=== PATIENT | female | born 1995 | race Caucasian/White ===

== ENCOUNTER → 2018-07-02 | Outpatient (CLI) | payer OTHER ==
[2018-07-02 06:53] LABS: Prothrombin Time 10.5 sec (9.0-12.0)
[2018-07-02 06:56] LABS: Anion Gap 10 mmol/L; Blood Urea Nitrogen 15 mg/dL (7-17); Calcium 9.9 mg/dL (8.4-10.2); Carbon Dioxide 28 mmol/L (22-30); Chloride 104 mmol/L (98-107); Glucose 121 mg/dL (74-99); Potassium 4.2 mmol/L (3.5-5.1); Sodium 142 mmol/L (137-145)
[2018-07-02 07:00] LABS: HCT 42.9 % (34.0-46.0); HGB 14.1 gm/dL (11.4-16.0); MCHC 32.9 g/dL (31.0-37.0); MCV 94.4 fL (80.0-100.0); Mean Platelet Volume 7.1; Platelet Count 318 k/uL (150-450); RBC 4.54 m/uL (3.80-5.40); RDW 11.8 % (11.5-15.5); WBC 7.4 k/uL (3.8-10.6)
== END ==
LOC: LABWHC1 06:35
PROVIDERS: ATTEND Internal Medicine
DX: I47.1 Supraventricular tachycardia (principal)
CPT/HCPCS: 36415; 80048; 85027; 85610

== ENCOUNTER 2023-02-23 18:48 | Emergency (ER) | payer BC, OTHER ==
[2023-02-23 19:06] VITALS: RESP 18; TEMP 98.4
--- NOTE | 2023-02-23 19:17 | ED ---
General Adult HPI - General Chief complaint: Extremity Injury, Lower Stated complaint: left ankle injury Time Seen by Provider: 02/23/23 18:55 Source: patient, RN notes reviewed Mode of arrival: wheelchair Limitations: no limitations - History of Present Illness Initial comments: 27-year-old male presents to the emergency department with chief complaint of left ankle injury. She states that this occurred around 6 PM today. She states that she was standing between 2 trailers when she fell causing her ankle to roll. She states that she feels that it was an inversion injury. She denies any numbness, tingling. She states that she has not attempted to bear weight on it since the injury. - Related Data Allergies Allergy/AdvReac Type Severity Reaction Status Date / Time No Known Allergies Allergy Verified 11/22/19 19:01 Review of Systems ROS Statement: Those systems with pertinent positive or pertinent negative responses have been documented in the HPI. ROS Other: All systems not noted in ROS Statement are negative. Past Medical History Additional Past Medical History / Comment(s): atrial tachycardia, episodic SVT History of Any Multi-Drug Resistant Organisms: None Reported Past Surgical History: Orthopedic Surgery Additional Past Surgical History / Comment(s): right knee surgery Past Psychological History: No Psychological Hx Reported Smoking Status: Never smoker Past Alcohol Use History: None Reported Past Drug Use History: None Reported General Exam Limitations: no limitations General appearance: alert, in no apparent distress Head exam: Present: atraumatic, normocephalic, normal inspection Eye exam: Present: normal appearance, PERRL, EOMI. Absent: scleral icterus, conjunctival injection, periorbital swelling ENT exam: Present: normal exam, mucous membranes moist Respiratory exam: Present: normal lung sounds bilaterally. Absent: respiratory distress, wheezes, rales, rhonchi, stridor Cardiovascular Exam: Present: regular rate, normal rhythm, normal heart sounds. Absent: systolic murmur, diastolic murmur, rubs, gallop, clicks Extremities exam: Present: tenderness (Left lateral ankle swelling and tenderness to palpation), normal capillary refill. Absent: full ROM (Decreased dorsiflexion of the left ankle) Back exam: Present: normal inspection Neurological exam: Present: alert, oriented X3 Psychiatric exam: Present: normal affect, normal mood Skin exam: Present: warm, dry, intact, normal color. Absent: rash Course Vital Signs 02/23/23 02/23/23 18:49 22:58 Temperature 98.4 F Pulse Rate 103 H 78 Respiratory 18 18 Rate Blood Pressure 133/87 137/80 O2 Sat by Pulse 98 97 Oximetry Medical Decision Making - Medical Decision Making Was pt. sent in by a medical professional or institution (, [facility], MANAGER CLINICAL RESEARCH, urgent care, hospital, or long term...) When possible be specific @ -No Did you speak to anyone other than the patient for history (EMS, parent, family, police, friend...)? What history was obtained from this source @ -No Did you review nursing and triage notes (agree or disagree)? Why? @ -I reviewed and agree with nursing and triage notes Were old charts reviewed (outside hosp., previous admission, EMS record, old EKG, old radiological studies, urgent care reports/EKG's, long term records)? Report findings @ -No old charts were reviewed Differential Diagnosis (chest pain, altered mental status, abdominal pain women, abdominal pain men, vaginal bleeding, weakness, fever, dyspnea, syncope, headache, dizziness, GI bleed, back pain, seizure, CVA, palpatations, mental health, musculoskeletal)? @ -Differential Musculoskeletal Muscular strain, contusion, ligament sprain, fracture, arthritis, septic arthritis, bursitis, cellulitis, muscle spasm, nerve compression, DVT, arterial occlusion, herpes zoster, electrolyte abnormality, tumor.... This is not meant to be in all inclusive list EKG interpreted by me (3pts min.). @ -None X-rays interpreted by me (1pt min.). @ -X-ray left ankle shows no evidence of acute fracture, soft tissue swelling to the lateral aspect of the ankle X-ray left knee shows no evidence of acute fracture CT interpreted by me (1pt min.). @ -None done U/S interpreted by me (1pt. min.). @ -None done What testing was considered but not performed or refused? (CT, X-rays, U/S, labs)? Why? @ -None What meds were considered but not given or refused? Why? @ -None Did you discuss the management of the patient with other professionals (professionals i.e. [facility] Cook, MANAGER CLINICAL RESEARCH, lab, RT, psych nurse, social media strategist, director call, teacher, safety patrol officer, case assembler)? Give summary @ -No Was smoking cessation discussed for >3mins.? @ -No Was critical care preformed (if so, how long)? @ -No Were there social determinants of health that impacted care today? How? (Homelessness, low income, unemployed, alcoholism, drug addiction, transportation, low edu. Level, literacy, decrease access to med. care, prison, rehab)? @ -No Was there de-escalation of care discussed even if they declined (Discuss DNR or withdrawal of care, Hospice)? DNR status @ -No What co-morbidities impacted this encounter? (DM, HTN, Smoking, COPD, CAD, Cancer, CVA, ARF, Chemo, Hep., AIDS, mental health diagnosis, sleep apnea, morbid obesity)? @ -None Was patient admitted / discharged? Hospital course, mention meds given and route, prescriptions, significant lab abnormalities, going to OR and other pertinent info. @ -Discharged. Patient presented to the emergency department chief complaint of left ankle and the injury. X-rays obtained which show no evidence of acute fracture. Patient was placed in an air splint. Advised to rest, ice, elevate, compress the ankle. Recommended Tylenol and Motrin as needed for pain and inflammation. Patient understands agreeable with discharge plan. Patient stable condition. Case discussed with Dr. Wilkinson Undiagnosed new problem with uncertain prognosis? @ -No Drug Therapy requiring intensive monitoring for toxicity (Heparin, Nitro, Insulin, Cardizem)? @ -No Were any procedures done? @ -No Diagnosis/symptom? @ -Ankle sprain Acute, or Chronic, or Acute on Chronic? @ -acute Uncomplicated (without systemic symptoms) or Complicated (systemic symptoms)? @ -Uncomplicated Side effects of treatment? @ -No Exacerbation, Progression, or Severe Exacerbation? @ -No Poses a threat to life or bodily function? How? (Chest pain, [place], [place], pneumonia, PE, COPD, DKA, ARF, appy, cholecystitis, CVA, Diverticulitis, Homicidal, Suicidal, threat to staff... and all critical care pts) @ -No Disposition Clinical Impression: Left ankle sprain Disposition: HOME SELF-CARE Condition: Stable Instructions (If sedation given, give patient instructions): Ankle Sprain (ED) Additional Instructions: Please follow up with your primary care provider. Return to the emergency department for new or worsening symptoms. Is patient prescribed a controlled substance at d/c from ED?: No Referrals: Sebas Degroot MD [Primary Care Provider] - 1-2 days
[2023-02-23 23:09] VITALS: BP 137/80; PULSE 78
--- NOTE | 2023-02-23 23:29 | XR ---
EXAMINATION TYPE: XR ankle complete LT DATE OF EXAM: 02/23/2023 7:30 PM CLINICAL INDICATION:Female, 27 years old with history of inversion injury; H COMPARISON: None TECHNIQUE: The left ankle is imaged in frontal, lateral and oblique projections. FINDINGS: Osseous mineralization appears appropriate. No acute fracture lucency or significant malalignment. An kle mortise appears preserved. Talar dome looks intact. Soft tissues show swelling about the ankle, s pecifically laterally over the lateral malleolus. No radiopaque foreign body is seen. IMPRESSION: 1. No evidence of acute fracture or dislocation of the ankle. 2. Lateral soft tissue swelling likely due to soft tissue injury.
--- NOTE | 2023-02-23 23:39 | XR ---
EXAMINATION TYPE: XR knee complete LT DATE OF EXAM: 02/23/2023 7:31 PM CLINICAL INDICATION:Female, 27 years old with history of fall; H COMPARISON: None. TECHNIQUE: XR knee complete LT; examined in Frontal, lateral and oblique projections. FINDINGS: Osseous mineralization appears appropriate. No definite acute fracture lucency or dislocation. Appear ance of the posterior distal femoral shaft on the lateral view suggests possibility of remote healed fracture. Joint spaces are maintained. Suprapatellar soft tissue fullness suggests possible small loi nt effusion. IMPRESSION: 1. No evidence of acute fracture or dislocation of the left knee. 2. Small knee joint effusion.
== END 2023-02-23 22:59 | disposition home or self-care (01) ==
LOC: EC 18:48
DX: S93.402A Sprain of unspecified ligament of left ankle, initial encounter (principal); X50.1XXA Overexertion from prolonged static or awkward postures, initial encounter
CPT/HCPCS: 99283